=== PATIENT | female | born 1995 | race Caucasian/White ===

== ENCOUNTER 2016-06-30 19:36 | Emergency (ER) | payer BC ==
[2016-06-30] MEDS ORDERED: NS 1,000 ML IV ONE ×2 (20:10)
[2016-06-30] MEDS ORDERED: ONDANSETRON 4 MG/2 ML VIAL IVP ONE (20:10)
[2016-06-30] MEDS ORDERED: LORazepam 2 MG/ML INJ IVP ONE (20:10)
[2016-06-30 20:30] LABS: % IMMATURE GRANULYOCYTES 0.7 % (0.0-1.1); ABSOLUTE IMMATURE GRANULOCYTES 0.13 10^3/uL (0.00-0.10); ADD DIFF? NO; ADD MORPH? NO; ADD SCAN? NO; ATYPICAL LYMPHOCYTE FLAG 20 (0-99); FRAGMENT RBC FLAG 0 (0-99); HEMATOCRIT 39.6 % (38.0-47.0); HEMOGLOBIN 14.2 g/dL (12.6-16.3); LEFT SHIFT FLG 10 (0-99); LIPEMIA HEMOLYSIS FLAG 90 (0-99); MEAN CELL HEMOGLOBIN 31.5 pg (27.9-34.1); MEAN CELL HEMOGLOBIN CONCENTR. 35.9 g/dL (32.4-36.7); MEAN CELL VOLUME 87.8 fL (81.5-99.8); MEAN PLATELET VOLUME 9.1 fL (8.7-11.7); PLATELET CLUMPS FLAG 0 (0-99); PLATELET COUNT 411 10^3/uL (150-400); RED BLOOD CELL COUNT 4.51 10^6/uL (4.18-5.33); RED CELL DISTRIBUTION WIDTH 13.7 % (11.5-15.2)
--- NOTE | 2016-06-30 20:31 | EDPHY ---
H & P Stated Complaint: N/V/D HPI/ROS: Chief complaint: Nausea, vomiting and diarrhea History of present illness: This is an otherwise healthy 21-year-old female who presents to the emergency department for evaluation treatment of sudden onset of nausea, vomiting and diarrhea. She reports the onset of symptoms this morning. Multiple episodes of both vomiting and diarrhea described as nonbloody. Associated abdominal cramping. She denies precipitating factors. She denies alleviating factors. She denies other associated signs or symptoms including no fevers, no urinary symptoms. No report of sick contacts, foreign travel or antibiotic use. Review of systems: A 10 point review of systems was obtained and other than described above was negative - Personal History LMP (Females 10-55): 1-7 Days Ago Current Tetanus/Diphtheria Vaccine: Yes - Medical/Surgical History Hx Asthma: No Hx Chronic Respiratory Disease: No Hx Diabetes: No Hx Cardiac Disease: No Hx Renal Disease: No Hx Cirrhosis: No Hx Alcoholism: No Hx HIV/AIDS: No Hx Splenectomy or Spleen Trauma: No Other PMH: PSHx: pilonidal cyst. PMHx: anxiety, depression, panic attacks - Social History Smoking Status: Current every day smoker - Physical Exam Exam: General Appearance: Alert, nontoxic. Eyes: Pupils equal and round no pallor or injection. ENT, Mouth: Mucous membranes moist. Respiratory: There are no retractions, lungs are clear to auscultation. Cardiovascular: Regular rate and rhythm. Gastrointestinal: Abdomen is soft and nontender, no masses, bowel sounds normal. Neurological: Alert and oriented x4. Strength and sensation intact and symmetrical. Skin: Warm and dry, no rashes. Musculoskeletal: Neck is supple nontender. Extremities are symmetrical, full range of motion. Psychiatric: Patient is oriented X 3, there is no agitation. Constitutional: Initial Vital Signs Temperature (C) 35.8 C L 06/30/16 19:46 Heart Rate 90 06/30/16 19:46 Respiratory Rate 24 H 06/30/16 19:46 Blood Pressure 112/79 06/30/16 19:46 O2 Sat (%) 100 06/30/16 19:46 O2 Delivery Mode Room Air Allergies/Adverse Reactions: Sulfa (Sulfonamide Antibiotics) Allergy (Verified 06/30/16 19:46) Home Medications: Medication Instructions Recorded Ondansetron Odt [Zofran Odt 4 mg 4 mg PO Q4 #6 tab 06/30/16 (*)] Prozac 10 MG (*) 06/30/16 Trinessa Tablet 06/30/16 Medical Decision Making ED Course/Re-evaluation: Patient seen under the supervision of my primary supervising physician Dr. Melyssa Muniz. Patient presents to the emergency depart with nausea, vomiting and diarrhea. On presentation she is nontoxic. She is afebrile and vital signs are stable. Physical exam is unremarkable including benign abdominal exam. Serial abdominal exams are performed in the emergency department including just prior to discharge remain benign. Blood studies are obtained, significant leukocytosis, possibly a stress reaction versus infection. She does have decreased bicarbonate. She is symptomatically treated and reports significant improvement in symptoms. She is tolerating oral fluids and food and requesting to be discharged home. Recheck of her chemistry panel shows improved bicarb. I do not believe imaging studies are warranted at this time. She is discharged home. Home care is discussed. She is asked to follow up with a primary care doctor on Saturday for recheck without fail. Strict return precautions are given. Patient voiced understanding and agreement with plan. Differential Diagnosis: Included but not limited to gastritis, gastroenteritis, biliary tract disease, pancreatitis, colitis, with associated complications - Data Points Laboratory Results: Laboratory Results 06/30/16 20:00 06/30/16 21:40 06/30/16 06/30/16 06/30/16 21:40 20:00 20:00 WBC RBC Hgb Hct MCV MCH MCHC RDW Plt Count MPV Neut % (Auto) Lymph % (Auto) Kendall % (Auto) Eos % (Auto) Baso % (Auto) Nucleat RBC Rel Count Absolute Neuts (auto) Absolute Lymphs (auto) Absolute Monos (auto) Absolute Eos (auto) Absolute Basos (auto) Absolute Nucleated RBC Immature Gran % Immature Gran # Sodium 139 mEq/L mEq/L 140 mEq/L mEq/L (134-144) (134-144) Potassium 3.6 mEq/L mEq/L 3.8 mEq/L mEq/L (3.5-5.2) (3.5-5.2) Chloride 110 mEq/L mEq/L 104 mEq/L mEq/L (97-110) (97-110) Carbon Dioxide 20 mEq/l L mEq/l 16 mEq/l L mEq/l (22-31) (22-31) Anion Gap 9 mEq/L mEq/L 20 mEq/L H mEq/L (8-16) (8-16) BUN 13 mg/dL mg/dL 15 mg/dL mg/dL (7-23) (7-23) Creatinine 0.6 mg/dL mg/dL 0.6 mg/dL mg/dL (0.6-1.0) (0.6-1.0) Estimated GFR > 60 > 60 Glucose 87 mg/dL mg/dL 170 mg/dL H mg/dL (70-100) (70-100) Calcium 8.0 mg/dL L D mg/dL 9.9 mg/dL mg/dL (8.5-10.4) (8.5-10.4) Total Bilirubin 0.9 mg/dL mg/dL (0.1-1.4) Conjugated Bilirubin 0.4 mg/dL mg/dL (0.0-0.5) Unconjugated Bilirubin 0.5 mg/dL mg/dL (0.0-1.1) AST 31 IU/L IU/L (14-46) ALT 36 IU/L IU/L (9-52) Alkaline Phosphatase 110 IU/L IU/L (38-126) Total Protein 8.6 g/dL H g/dL (6.3-8.2) Albumin 4.8 g/dL g/dL (3.5-5.0) Lipase 41.0 IU/L IU/L (23-300) Beta HCG, Qual NEGATIVE 06/30/16 20:00 WBC 17.73 10^3/uL H 10^3/uL (3.80-9.50) RBC 4.51 10^6/uL 10^6/uL (4.18-5.33) Hgb 14.2 g/dL g/dL (12.6-16.3) Hct 39.6 % % (38.0-47.0) MCV 87.8 fL fL (81.5-99.8) MCH 31.5 pg pg (27.9-34.1) MCHC 35.9 g/dL g/dL (32.4-36.7) RDW 13.7 % % (11.5-15.2) Plt Count 411 10^3/uL H 10^3/uL (150-400) MPV 9.1 fL fL (8.7-11.7) Neut % (Auto) 92.8 % H % (39.3-74.2) Lymph % (Auto) 4.5 % L % (15.0-45.0) Kendall % (Auto) 1.8 % L % (4.5-13.0) Eos % (Auto) 0.0 % L % (0.6-7.6) Baso % (Auto) 0.2 % L % (0.3-1.7) Nucleat RBC Rel Count 0.0 % % (0.0-0.2) Absolute Neuts (auto) 16.45 10^3/uL H 10^3/uL (1.70-6.50) Absolute Lymphs (auto) 0.79 10^3/uL L 10^3/uL (1.00-3.00) Absolute Monos (auto) 0.32 10^3/uL 10^3/uL (0.30-0.80) Absolute Eos (auto) 0.00 10^3/uL L 10^3/uL (0.03-0.40) Absolute Basos (auto) 0.04 10^3/uL 10^3/uL (0.02-0.10) Absolute Nucleated RBC 0.00 10^3/uL 10^3/uL (0-0.01) Immature Gran % 0.7 % % (0.0-1.1) Immature Gran # 0.13 10^3/uL H 10^3/uL (0.00-0.10) Sodium Potassium Chloride Carbon Dioxide Anion Gap BUN Creatinine Estimated GFR Glucose Calcium Total Bilirubin Conjugated Bilirubin Unconjugated Bilirubin AST ALT Alkaline Phosphatase Total Protein Albumin Lipase Beta HCG, Qual Medications Given: Discontinued Medications Sodium Chloride (Ns) 1,000 mls @ 0 mls/hr IV ONCE ONE PRN Reason: Wide Open Stop: 06/30/16 20:11 Last Admin: 06/30/16 20:12 Dose: 1,000 mls Sodium Chloride (Ns) 1,000 mls @ 0 mls/hr IV ONCE ONE PRN Reason: Wide Open Stop: 06/30/16 20:11 Last Admin: 06/30/16 20:47 Dose: 1,000 mls Lorazepam (Ativan Injection) 0.5 mg IVP EDNOW ONE Stop: 06/30/16 20:11 Last Admin: 06/30/16 20:17 Dose: 0.5 mg Ondansetron HCl (Zofran) 4 mg IVP EDNOW ONE Stop: 06/30/16 20:11 Last Admin: 06/30/16 20:18 Dose: 4 mg Ondansetron HCl (Zofran Odt 4 Mg Prepack#2) 1 btl TAKEHOME EDNOW ONE Stop: 06/30/16 22:39 Last Admin: 06/30/16 22:54 Dose: 1 btl Departure - Departure Disposition: Home, Routine, Self-Care Clinical Impression: Vomiting and diarrhea Condition: Good Instructions: Ondansetron (By mouth), Acute Nausea and Vomiting (ED), Acute Diarrhea (ED) Additional Instructions: Follow-up with your primary care doctor on Saturday for recheck Drink plenty of fluids to stay hydrated If symptoms worsen or new symptoms develop return to the emergency department for recheck Referrals: SELVIN THORNTON [Other] - As per Instructions Prescriptions: Ondansetron Odt [Zofran Odt 4 mg (*)] 4 mg PO Q4 #6 tab
[2016-06-30 20:41] LABS: ALANINE AMINOTRANSFERASE 36 IU/L (9-52); ALBUMIN 4.8 g/dL (3.5-5.0); ALKALINE PHOSPHATASE 110 IU/L (38-126); ANION GAP 20 mEq/L (8-16); ASPARTATE AMINOTRANSFERASE 31 IU/L (14-46); BILIRUBIN,TOTAL 0.9 mg/dL (0.1-1.4); BILIRUBIN-CONJUGATED 0.4 mg/dL (0.0-0.5); BILIRUBIN-UNCONJUGATED 0.5 mg/dL (0.0-1.1); CALCIUM 9.9 mg/dL (8.5-10.4); CARBON DIOXIDE 16 mEq/l (22-31); CHLORIDE 104 mEq/L (97-110); CREATININE 0.6 mg/dL (0.6-1.0); GLOMERULAR FILTRATION RATE > 60; GLUCOSE 170 mg/dL (70-100); POTASSIUM 3.8 mEq/L (3.5-5.2); SODIUM 140 mEq/L (134-144); TOTAL PROTEIN 8.6 g/dL (6.3-8.2)
[2016-06-30 21:23] VITALS: RESP 16
[2016-06-30 22:10] LABS: ANION GAP 9 mEq/L (8-16); CARBON DIOXIDE 20 mEq/l (22-31); CHLORIDE 110 mEq/L (97-110); CREATININE 0.6 mg/dL (0.6-1.0); GLOMERULAR FILTRATION RATE > 60; GLUCOSE 87 mg/dL (70-100); POTASSIUM 3.6 mEq/L (3.5-5.2); SODIUM 139 mEq/L (134-144)
[2016-06-30] MEDS ORDERED: ONDANSETRON 4MG PREPACK#2 BTL TAKEHOME ONE (22:38)
[2016-06-30 22:53] VITALS: BP 100/50; PULSE 75; TEMP 97.5; O2SAT 97
== END 2016-06-30 22:52 | disposition home or self-care (01) ==
DX: R11.2 Nausea with vomiting, unspecified (principal); R19.7 Diarrhea, unspecified; F17.200 Nicotine dependence, unspecified, uncomplicated
CPT/HCPCS: 96374; J2405